=== PATIENT | male | born 1985 | race African-American/Black ===

== ENCOUNTER 2021-10-04 12:48 | Emergency (ER) | payer OTHER ==
[2021-10-04 14:56] VITALS: TEMP 98.1
[2021-10-04] MEDS ORDERED: SODIUM CHLORIDE 0.9% 50 ML IVPB ONE (16:15)
[2021-10-04] MEDS ORDERED: CASIRIVIMAB/IMDEVIMAB (EUA) 1,200 MG in SODIUM CHLORIDE 0.9% 100 ML IVPB ONE (16:15)
--- NOTE | 2021-10-04 16:21 | ED ---
General Adult HPI - General Chief complaint: Upper Respiratory Infection Stated complaint: Covid symptoms, wants test Time Seen by Provider: 10/04/21 15:45 Source: patient, RN notes reviewed Mode of arrival: ambulatory Limitations: no limitations - History of Present Illness Initial comments: 36-year-old male presenting to the ER complaining of Covid like symptoms for the past 3 days. Patient notes that his symptoms are very mildly this time but he wanted to get tested. Patient denied any other issues or complaints. He was otherwise well-appearing. He denied chest pain shortness breath headache nausea vomiting diarrhea constipation fever fatigue chills. - Related Data Home Medications Medication Instructions Recorded Confirmed No Known Home Medications 04/01/16 04/01/16 Allergies Allergy/AdvReac Type Severity Reaction Status Date / Time No Known Allergies Allergy Verified 10/04/21 14:53 Review of Systems ROS Statement: Those systems with pertinent positive or pertinent negative responses have been documented in the HPI. ROS Other: All systems not noted in ROS Statement are negative. Past Medical History Past Medical History: No Reported History History of Any Multi-Drug Resistant Organisms: None Reported Past Surgical History: No Surgical Hx Reported Past Psychological History: No Psychological Hx Reported Smoking Status: Never smoker Past Alcohol Use History: None Reported Past Drug Use History: Marijuana General Exam Limitations: no limitations General appearance: alert, in no apparent distress Head exam: Present: atraumatic, normocephalic, normal inspection Eye exam: Present: normal appearance, PERRL, EOMI. Absent: scleral icterus, conjunctival injection, periorbital swelling ENT exam: Present: normal exam, mucous membranes moist Neck exam: Present: normal inspection Respiratory exam: Present: normal lung sounds bilaterally. Absent: respiratory distress, wheezes, rales, rhonchi, stridor Cardiovascular Exam: Present: regular rate, normal rhythm, normal heart sounds. Absent: systolic murmur, diastolic murmur, rubs, gallop, clicks Extremities exam: Present: normal inspection, full ROM, normal capillary refill. Absent: tenderness, pedal edema, joint swelling, calf tenderness Neurological exam: Present: alert, oriented X3 Psychiatric exam: Present: normal affect, normal mood Skin exam: Present: warm, dry, intact, normal color. Absent: rash Course Vital Signs 10/04/21 14:53 Temperature 98.1 F Pulse Rate 58 L Respiratory 20 Rate Blood Pressure 137/81 O2 Sat by Pulse 100 Oximetry Medical Decision Making - Medical Decision Making 36-year-old male complaining of Covid like symptoms for the past 3 days. Covid test ordered. Covid test positive. Patient does meet criteria for monoclonal antibody and wishes to undergo infusion. Patient is agreeable with discharge home after. Case discussed with Dr. Lewis, patient can discharge home. - Lab Data Lab Results 10/04/21 Range/Units 14:58 Coronavirus (PCR) Detected A (Not Detectd) Disposition Clinical Impression: COVID Disposition: HOME SELF-CARE Condition: Stable Instructions (If sedation given, give patient instructions): Coronavirus Disease 2019 (COVID-19) Additional Instructions: Please return to the Emergency Department if symptoms worsen or any other concerns. Is patient prescribed a controlled substance at d/c from ED?: No Referrals: None,Stated [Primary Care Provider] - 1-2 days Time of Disposition: 16:21
[2021-10-04 16:40] VITALS: BP 120/89; PULSE 80; RESP 16
== END 2021-10-04 17:57 | disposition home or self-care (01) ==
LOC: EC 12:48
DX: U07.1 COVID-19 (principal); F12.90 Cannabis use, unspecified, uncomplicated
CPT/HCPCS: 99283; 87635; Q0243